=== PATIENT | male | born 1990 | race Caucasian/White ===

== ENCOUNTER 2021-09-14 17:19 | Emergency (ER) | payer OTHER ==
[~2021-09-14] VITALS: Ht 180.3 cm; Wt 202.0 kg
[2021-09-14 17:22] VITALS: BP 152/88
== END 2021-09-14 23:58 ==
LOC: ER 17:19
DX: S42.001A Fracture of unspecified part of right clavicle, initial encounter for closed fracture (principal); F10.129 Alcohol abuse with intoxication, unspecified; Y90.0 Blood alcohol level of less than 20 mg/100 ml; X58.XXXA Exposure to other specified factors, initial encounter; Y93.89 Activity, other specified; Y92.89 Other specified places as the place of occurrence of the external cause; Y99.8 Other external cause status
CPT/HCPCS: 71045; 99283